=== PATIENT | male | born 2000 | race Hispanic/Latino ===

== ENCOUNTER 2020-09-27 20:40 | Emergency (ER) | payer BC | END 2020-09-27 21:30 | disposition home or self-care (01) | LOC: ERS 20:40 | DX: K13.4 Granuloma and granuloma-like lesions of oral mucosa (principal); K12.2 Cellulitis and abscess of mouth | CPT/HCPCS: 40800 ==

== ENCOUNTER 2021-11-21 11:37 | Emergency (ER) | payer BC, SELFPAY ==
[2021-11-21] MEDS ORDERED: Bacitracin 1 PK ONE (12:26)
== END 2021-11-21 12:31 | disposition home or self-care (01) ==
LOC: ERS 11:37
DX: S50.812A Abrasion of left forearm, initial encounter (principal); V00.131A Fall from skateboard, initial encounter
CPT/HCPCS: 99282